=== PATIENT | female | born 1950 | race Caucasian/White ===

== ENCOUNTER 2016-07-01 11:58 | Inpatient (IN) | payer MEDICARE ==
[~2016-07-01] VITALS: Ht 167.6 cm; Wt 67.0 kg
[2016-07-01] MEDS ORDERED: LEVO88TA2 PO (12:25)
[2016-07-01] MEDS ORDERED: ACET-703 PO (12:28)
[2016-07-01] MEDS ORDERED: NAPR220T95 PO (12:28)
[2016-07-13] MEDS ORDERED: CHLORHEXIDINE GLUCONATE 2 % 1 PACK (2 CLOTHS) TOPICAL PRN (05:45)
[2016-07-13] MEDS ORDERED: SODIUM CHLORID 0.9% 500 ML IV PRN (05:45)
[2016-07-13] MEDS ORDERED: CHLORHEXIDINE GLUCONATE 4% SOLN 120 ML BTL TOPICAL SCH (05:45)
[2016-07-13] MEDS ORDERED: ceFAZolin 2 GM PREMIX 50 ML IV SCH (05:45)
[2016-07-13] MEDS ORDERED: METOPROLOL TARTRATE 25 MG TAB PO PRN (05:45)
[2016-07-13] MEDS ORDERED: LACTATED RINGER'S 1000 ML IV PRN (05:45)
[2016-07-13] MEDS ORDERED: SODIUM CHLORIDE FLUSH PRN IV FLUSH (05:45)
[2016-07-13] MEDS ORDERED: POVIDONE IODINE 5% (ANTISEPSIS KIT) 4 APPLICATIONS EACH NARE PRN (05:45)
[2016-07-13] MEDS ORDERED: INSULIN HUMAN REGULAR 1,000 UNITS/10 ML VIAL SQ PRN (05:45)
[2016-07-13] MEDS ORDERED: GENTAMICIN SULFATE 80 MG/2 ML VIAL ONE (05:51)
[2016-07-13 06:00] VITALS: BP 152/72; PULSE 96; RESP 20; TEMP 98.8; O2SAT 100
[2016-07-13] MEDS ORDERED: ACETAMINOPHEN 1000 MG/100 ML VIAL IV ONE (06:44)
[2016-07-13] MEDS ORDERED: FAMOTIDINE 20 MG/2 ML VIAL ONE (06:44)
[2016-07-13] MEDS ORDERED: fentaNYL CITRATE 250 MCG/5 ML AMP ONE (06:45)
[2016-07-13] MEDS ORDERED: DEXAMETHASONE SOD PHOS 4 MG/ML VIAL ONE (06:45)
[2016-07-13] MEDS ORDERED: MIDAZOLAM HCL 2 MG/2 ML VIAL ONE (06:45)
[2016-07-13] MEDS ORDERED: SODIUM CHLORIDE 0.9% FLUSH 5 ML FLUSH IVF PRN (07:00)
[2016-07-13] MEDS ORDERED: EXPAREL PERI-ARTICULAR INJECTION (TOTAL VOL. 60 ML) P-ARTICULR SCH ×2 (07:00)
[2016-07-13] MEDS ORDERED: ZOLPIDEM TARTRATE 5 MG TAB PO PRN (07:00)
[2016-07-13] MEDS ORDERED: Post-op Orders (for Pharmacy) MISC XX ONE (07:00)
[2016-07-13] MEDS ORDERED: BISACODYL 10 MG SUPP RECTAL PRN (07:00)
[2016-07-13] MEDS ORDERED: NALBUPHINE HCL 20 MG/ML AMP IM PRN (07:00)
[2016-07-13] MEDS ORDERED: TRANEXAMIC ACID INJ 625 MG in SODIUM CHLORIDE 0.9% INJ 100 ML IV SCH ×2 (07:00→12:00)
[2016-07-13] MEDS ORDERED: SODIUM CHLORIDE 0.9% IV SCH (07:00)
[2016-07-13] MEDS ORDERED: MAGNESIUM HYDROXIDE SUSP 30 ML CUP PO PRN ×2 (07:00→18:00)
[2016-07-13] MEDS ORDERED: TRANEXAMIC ACID IV SCH (07:00)
[2016-07-13] MEDS: SODIUM CHLORIDE 0.9% FLUSH 5 ML FLUSH IVF SCH ×2 (09:00→20:19)
[2016-07-13] MEDS ORDERED: SODIUM CHLORIDE FLUSH BID IV FLUSH SCH (09:00)
[2016-07-13] MEDS: ASPIRIN EC 81 MG TABEC PO SCH ×2 (09:00→20:18)
[2016-07-13] MEDS ORDERED: HYDROmorphone HCL PF 1 MG/ML VIAL IV PUSH PRN (09:15)
[2016-07-13] MEDS: KETOROLAC TROMETHAMINE 30 MG/ML (IVP) VIAL IVP SCH ×3 (09:30→17:29)
[2016-07-13] MEDS ORDERED: ACETAMINOPHEN 500 MG CPLT PO PRN (09:30)
[2016-07-13] MEDS: LACTATED RINGER'S 1000 ML INJ 1,000 ML IV SCH (09:30)
[2016-07-13] MEDS ORDERED: DO NOT ADM ANY ANTICOAGULANT DRUGS PRN (10:30)
--- NOTE | 2016-07-13 10:44 | RADRPT ---
EXAM DATE/TIME: 07/13/2016 10:15 [place] COMPARISON: No previous studies available for comparison. INDICATIONS : Post op left total hip replacement. MEDICAL HISTORY : Unobtainable. SURGICAL HISTORY : Unobtainable. ENCOUNTER: Initial ACUITY: 1 day PAIN SCORE: Non-responsive. LOCATION: Left hip FINDINGS: Total hip arthroplasty is present. Hardware appears intact. Alignment is anatomic. The adjacent pelvi s is focally unremarkable. CONCLUSION: Satisfactory appearance post a left ALEK Franky Kohler MD on July 13, 2016 at 10:42 Board Certified Radiologist. This report was verified electronically.
[2016-07-13] MEDS: ONDANSETRON HCL 4 MG/2 ML VIAL IVP PRN (11:31)
[2016-07-13 11:34] VITALS: BP 129/74; PULSE 86; RESP 16; TEMP 98.1; O2SAT 100
--- NOTE | 2016-07-13 11:41 | HHI.FF ---
Face to Face Verification Diagnosis: (1) Status post total replacement of left hip Physical Therapy Gait training Hip: Total hip, Protocol: Left, Posterior hip precautions, Progress to weight bearing Canvas Knee Splint: When in bed & 2 pillows btw thighs Left LE Weight Bearing: WB as tolerated Left LE Range of Motion: Active ROM Nursing Nursing: Dressing changes Dressing Changes: Daily dressing change, Coverderm/Primapore Additional Instructions Remove steristrips on postop day 14. I have seen patient Mary Covarrubias on 07/13/16. My clinical findings support the need for the requested home health care services because: Ltd mobility - disease progression Limited ability to care for self High risk of falls I certify that my clinical findings support that this patient is homebound because: Post-op weakness Unsteady gait/balance Unsafe to leave home unassisted Sarahi Peguero MD (Charles) July 13, 2016 11:41
[2016-07-13] MEDS ORDERED: ePHEDrine/NS 25 MG/5 ML SYR IV ONE (12:00)
[2016-07-13] MEDS ORDERED: PROPOFOL 200 MG/20 ML AMP IV ONE (12:00)
[2016-07-13] MEDS ORDERED: ONDANSETRON HCL 4 MG/2 ML VIAL IV PUSH ONE (12:00)
[2016-07-13] MEDS ORDERED: LACTATED RINGER'S 1000 ML INJ 1,000 ML IV ONE (12:00)
[2016-07-13] MEDS ORDERED: NEOSTIGMINE 3 MG/3 ML SYR IV ONE (12:00)
[2016-07-13 17:00] VITALS: BP 123/59; PULSE 93; RESP 16; TEMP 96.7; O2SAT 100
--- NOTE | 2016-07-13 17:34 | PD.CONS ---
HPI Service [facility] Hospitalists Consult Requested By Dr. Peguero Reason for Consult medical management Primary Care Physician Non-Staff Diagnoses: History of Present Illness Patient is a 65-year-old female with past medical history of hypothyroidism, non-Hodgkin's lymphoma in remission is admitted under the orthopedic service for left hip arthroplasty. She is postoperative day 0. 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 She did have her right hip done a few years back. Currently, patient feels nauseous and vomited one time. She denies any chest pain, shortness of breath. She tells me that her pain is currently controlled, however she is very sensitive to narcotics. She is hopeful she can control the pain with just Tylenol. She denies any sore throat, runny nose, ear pain, abdominal pain, burning with urination Hospitalist service was consulted for medical management. Review of Systems Template review of systems are negative except for those mentioned in the history of present illness. Past Family Social History Allergies: Coded Allergies: Morphine (Verified Allergy, Severe, VOMITING, 07/13/16) Tramadol (Verified Allergy, Severe, VOMITING, 07/13/16) Uncoded Allergies: CODEINE (Allergy, Unknown, 11/21/02) Past Medical History Hypothyroidism and non-Hodgkin's lymphoma Past Surgical History Right and left hip arthroplasty, stem cell transplant, oophorectomy on the left due to ovarian cyst, and two port placements Reported Medications Reported Meds & Active Scripts Active Reported Aleve (Naproxen Sodium) 220 Mg Tab 220 Mg PO BID PRN Tylenol Extra Strength (Acetaminophen) 500 Mg Tab 500 Mg PO Q6H PRN Levothyroxine (Levothyroxine Sodium) 88 Mcg Tab 88 Mcg PO DAILY 2 TIMES A WEEK (SAT. AND sUN.) Levothyroxine (Levothyroxine Sodium) 88 Mcg Tab 44 Mcg PO DAILY 5 DAYS A WEEK ( MON. THRU FRI.) Family History Mother had depression and anxiety, father from esophageal cancer Social History Denies any smoking history. Drinks alcohol occasionally. Denies any illegal drug use Physical Exam Vital Signs Vital Signs Date Time Temp Pulse Resp B/P Pulse Ox O2 Delivery O2 Flow Rate FiO2 07/13/16 14:41 18 07/13/16 11:34 98.1 86 16 129/74 100 07/13/16 11:00 79 22 111/52 100 Nasal Cannula 2 07/13/16 10:45 84 22 125/60 100 Nasal Cannula 2 07/13/16 10:30 80 22 133/61 100 Nasal Cannula 2 07/13/16 10:15 91 22 128/58 100 Nasal Cannula 2 07/13/16 10:00 80 22 140/65 100 Nasal Cannula 2 07/13/16 09:45 95 22 121/58 100 Nasal Cannula 2 07/13/16 09:39 96.9 81 22 113/55 100 Nasal Cannula 2 07/13/16 06:00 98.8 96 20 152/72 100 Physical Exam GENERAL: This is a well-nourished, well-developed patient, in no apparent distress. SKIN: No rashes, ecchymoses or lesions. Cool and dry. HEAD: Atraumatic. Normocephalic. No temporal or scalp tenderness. EYES: Pupils equal round and reactive. Extraocular motions intact. No scleral icterus. No injection or drainage. ENT: Nose without drainage. Throat without erythema, tonsillar hypertrophy or exudate. Uvula midline. Airway patent. NECK: Trachea midline. No JVD or lymphadenopathy. Supple, nontender, no meningeal signs. CARDIOVASCULAR: Regular rate and rhythm without murmurs. RESPIRATORY: Clear to auscultation. Breath sounds equal bilaterally. No wheezes , rales, or rhonchi. GASTROINTESTINAL: Abdomen soft, non-tender, nondistended. No hepato-splenomegaly , or palpable masses. No guarding. MUSCULOSKELETAL: Extremities without edema. Dressing over left hip is dry clean and intact. She is able to move her toes, Refill less than 2 seconds, sensation is intact. No calf tenderness. Negative Homans sign bilaterally. NEUROLOGICAL: Awake and alert. Cranial nerves II through XII intact. Motor and sensory grossly within normal limits other extremities. Normal speech. Laboratory Laboratory Tests Test 07/13/16 05:50 Blood Type O POSITIVE Antibody Screen NEGATIVE Imaging Last Impressions Hip X-Ray 07/13/16 0000 Signed Impressions: Service Date/Time: Wednesday, July 13, 2016 10:15 - CONCLUSION: Satisfactory appearance post a left ALEK Franky Kohler MD Assessment and Plan Assessment and Plan Left hip arthroplasty postop day 0. Anticoagulation, rehabilitation, antibiotics and pain management per orthopedic surgery. Colace, MiraLAX and milk of magnesia as needed for bowel regimen. Follow-up hemoglobin in the morning. Hypothyroidism: Home medication has been resumed Non-Hodgkin's lymphoma: In remission DVT prophylaxis: Per orthopedic surgery Thank you for allowing me to take part of Mrs Covarrubias's care, Will continue to follow. Code Status Full code Discussed Condition With Patient and nurse Alyse Leslie MD July 13, 2016 17:34
[2016-07-13] MEDS ORDERED: METOCLOPRAMIDE HCL 10 MG/2 ML VIAL IV PUSH PRN (18:00)
[2016-07-13 20:25] VITALS: BP 128/58; PULSE 97; RESP 17; TEMP 97.3; O2SAT 97
[2016-07-13] MEDS: CELECOXIB 200 MG CAP PO SCH (21:00)
[2016-07-13 21:17] VITALS: O2SAT 100
[2016-07-13] MEDS ORDERED: PILL SPLITTER OTHER PRN (22:00)
[2016-07-14] VITALS (8 sets, daily range): BP systolic 101–135; BP diastolic 52–71; PULSE 88–100; RESP 16–20; TEMP 96.4–99.6; O2SAT 96–100
[2016-07-14] MEDS: KETOROLAC TROMETHAMINE 30 MG/ML (IVP) VIAL IVP SCH ×4 (01:00→17:10)
[2016-07-14] MEDS: LACTATED RINGER'S 1000 ML INJ 1,000 ML IV SCH ×3 (02:22→20:18)
[2016-07-14] MEDS: LEVOTHYROXINE SODIUM 88 MCG TAB PO SCH (05:42)
--- NOTE | 2016-07-14 06:12 | PD.ORT.PN ---
Subjective Post Op Day #: 1 Subjective Remarks She is doing well with almost no pain. She has been [place] [facility] Walked 4 steps due to nausea. Objective Vitals Vital Signs Date Time Temp Pulse Resp B/P Pulse Ox O2 Delivery O2 Flow Rate FiO2 07/14/16 04:05 99.6 100 16 105/52 97 07/14/16 00:30 99.5 97 17 101/54 97 07/13/16 21:17 100 Nasal Cannula 2.00 07/13/16 20:25 97.3 97 17 128/58 97 07/13/16 17:00 96.7 93 16 123/59 100 07/13/16 14:41 18 07/13/16 11:34 98.1 86 16 129/74 100 07/13/16 11:00 79 22 111/52 100 Nasal Cannula 2 07/13/16 10:45 84 22 125/60 100 Nasal Cannula 2 07/13/16 10:30 80 22 133/61 100 Nasal Cannula 2 07/13/16 10:15 91 22 128/58 100 Nasal Cannula 2 07/13/16 10:00 80 22 140/65 100 Nasal Cannula 2 07/13/16 09:45 95 22 121/58 100 Nasal Cannula 2 07/13/16 09:39 96.9 81 22 113/55 100 Nasal Cannula 2 I/O 07/13/16 07/13/16 07/13/16 07/14/16 07/14/16 07/14/16 07:00 15:00 23:00 07:00 15:00 23:00 Intake Total 1940 ml 480 ml Output Total 925 ml Balance 1015 ml 480 ml Intake Oral 240 ml 480 ml IV Total 200 ml Other 1500 ml Output Urine Total 700 ml Estimated Blood Loss 225 ml # Voids 2 2 # Bowel Movements 0 0 Imaging Hip x-ray looks good. Last 72 hours Impressions Hip X-Ray 07/13/16 0000 Signed Impressions: Service Date/Time: Wednesday, July 13, 2016 10:15 - CONCLUSION: Satisfactory appearance post a left ALEK Franky Kohler MD Objective Remarks She is resting comfortably, supine in bed . The neurovascular status is intact. The dressing is dry and intact. Assessment & Plan Ortho Post Op Day #: 1 Problem List: (1) Status post total replacement of left hip Plan: Continue postop care and PT. Assessment and Plan Condition: Good. Orthopaedically stable. DVT prophylaxis: TEDs, sequentials, ASA. Discharge plans: SNF for rehab ( lives alone without assistance) Has appointment. Sarahi Peguero MD (Charles) July 14, 2016 06:12
[2016-07-14 08:23] LABS: HEMATOCRIT 33.1 % (35.0-46.0); REVIEW FLAG FINAL
[2016-07-14] MEDS: ASPIRIN EC 81 MG TABEC PO SCH ×2 (08:28→20:50)
[2016-07-14] MEDS: CELECOXIB 200 MG CAP PO SCH ×2 (08:28→20:50)
[2016-07-14] MEDS: POLYETHYLENE GLYCOL 17 GM PKG PO SCH (08:29)
[2016-07-14] MEDS: SODIUM CHLORIDE 0.9% FLUSH 5 ML FLUSH IVF SCH ×2 (08:29→20:52)
[2016-07-14] MEDS: HYDROmorphone HCL 2 MG TAB PO PRN ×3 (08:37→20:49)
[2016-07-14] MEDS: ONDANSETRON HCL 4 MG/2 ML VIAL IVP PRN (08:46)
[2016-07-14] MEDS ORDERED: LEVOTHYROXINE SODIUM 88 MCG TAB PO SCH (09:00)
--- NOTE | 2016-07-14 10:00 | MP ---
cc: Bandar BACA. DATE OF THE OPERATION 07/13/2016 PREOPERATIVE DIAGNOSIS Osteonecrosis left femoral head. POSTOPERATIVE DIAGNOSIS Osteonecrosis left femoral head. OPERATION PERFORMED Left total hip arthroplasty with Cologne prosthesis. SURGEON Sarahi Baca MD ANESTHESIA General by LMA with supplemental local. INDICATIONS AND FINDINGS This 65-year-old woman has had left hip pain for in excess of a year with progressive increase in pain. Her ambulation tolerance is 1/4-mile because of the pain. This has not responded well to conservative measures including antiinflammatory agents, activity modification, exercise and ambulatory aids. This limits her ability to function appropriately. She was found to have osteonecrosis of the femoral head radiographically with MRI and x-ray. Physical findings showed limited motion in the hip with tenderness in the hip. X-rays showed an asymmetric femoral head with a slight step-off which is seen on x-ray and MRI. Operative findings showed some a soft superior aspect of the greater of the femoral head with irregularity in the articular cartilage and irregularity in the acetabulum with loss of articular cartilage in the depths of the acetabulum. This would be consistent with Ficat III to IV findings. PROSTHESIS USED Cologne prosthesis with the acetabular component being a 48-mm Tritanium cluster cup with a 32-mm inner diameter 0-degree liner. The femoral component was a size 3 x 132 degree Accolade II femoral component with a femoral head of X3 polyethylene with 32-mm outer diameter, +0 neck length. PROCEDURE The patient was brought to the operating room and a general endotracheal anesthetic was administered. She was placed in a lateral position on a Biomet lateral positioner with the left hip up. She was then prepped with alcohol, Hibiclens and Chloraprep and draped in the usual manner with the hip draped free. An axillary roll was under the right shoulder. An appropriate time-out procedure was carried out. The incision site was anesthetized with Exparel prior to making the incision. The incision was then made over the greater trochanter tip measuring approximately 12-cm. The incision was deepened through subcutaneous tissues to the fascia irene and gluteus fascia which were incised in line with the fibers in the skin incision. The Charnley retractor was placed with its wound towels. The sciatic nerve was identified and protected throughout the procedure. The hip was internally rotated. The external rotators were released off the posterior aspect of the greater trochanter and reflected off the capsule which was likewise released by doing a capsulotomy with a posteriorly based flap. Hemostasis was carefully achieved. The hip was dislocated. The femoral neck was transected with the oscillating saw at the appropriate level. The femoral head was removed. Retractors were placed about the proximal femur. Femoral preparation was initiated with a box osteotome, canal-finding awl and large curette. The broaching was then initiated with a size 0 and went in one size increments, going up to size 3. With the size [address], calcar planing was carried out. The hip was then repositioned exposing the acetabulum. Dissection of the soft tissues around the hip was carried out with excision of the labrum and the ligamentum teres. Hemostasis was carefully achieved again. Reaming was initiated with the 44-mm reamer and went in 1-mm increments up to size 48. At this level a trial prosthesis was impacted into place and seated appropriately. This was very stable and appropriate in position. The trial prosthesis was removed. A 48-mm outer diameter cluster hole titanium shell was impacted into place and seated appropriately. This was done according to anatomic and instrumentation lines. The drill hole was then made in the superior fenestration. This was then sounded and a 25-mm screw was inserted into this fenestration. When this was inserted, the 0-degrees liner was inserted and impacted into place. A rongeur was used to remove osteophytes about the acetabulum. Local anesthesia was administered throughout the acetabulum and then up into the posterior aspect and anterior aspect of the femur at the cut levels. The trial reduction was then carried out with the a +0 neck length and 32-mm trial head. The stability was excellent. The motion was excellent. The leg lengths appeared to be appropriate. There is no pistoning. After and after removal of the neck and head trial, the broach was removed. The actual prosthesis which was a 132-degree, size 3 Accolade II stem was impacted into place and seated appropriately. When this was fully seated, a trial reduction was again carried out with the trial prosthesis. The prosthesis chosen was a Biolox Delta 32-mm head with a +0-mm neck length. The trunnion was cleaned and dried. The femoral head was placed onto the clean and dry trunnion impacted into place. The hip was reduced. The stability was excellent. The range of motion was excellent. There was no pistoning. The leg lengths appeared appropriate. The remainder of the Exparel was then injected throughout the hip at the appropriate levels. The external rotators and capsule were repaired to the posterior aspect of the greater trochanter with #1 transosseous Vicryl sutures with a Krackow technique. The fascia irene and gluteus fascia were repaired after verifying the integrity of the sciatic nerve. This was done with a #1 Vicryl in interrupted [id number] sutures. The subcutaneous tissues were closed with 2-0 Vicryl interrupted simple sutures with buried knots. The skin was closed with a continuous subcuticular closure of 4-0 Monocryl. The wound was dressed with Steri-Strips followed by dry dressing and Medipore compression hip dressing. A canvas knee splint was applied. The patient was transferred to the recovery room in satisfactory condition having tolerated the procedure well. COUNTS Counts were correct. SPECIMENS None. ESTIMATED BLOOD LOSS 300 mL. MD MASON Flores/CHEVY /9:36 AM /9:40 AM
--- NOTE | 2016-07-14 11:47 | HHI.PR ---
Subjective Remarks Patient reports that her pain is well controlled. No abdominal pain, nausea, vomiting. Has not had a bowel movement yet. Objective Vitals Vital Signs Date Time Temp Pulse Resp B/P Pulse Ox O2 Delivery O2 Flow Rate FiO2 07/14/16 09:37 18 07/14/16 08:00 96.4 94 19 135/71 100 07/14/16 04:05 99.6 100 16 105/52 97 07/14/16 00:30 99.5 97 17 101/54 97 07/13/16 21:17 100 Nasal Cannula 2.00 07/13/16 20:25 97.3 97 17 128/58 97 07/13/16 17:00 96.7 93 16 123/59 100 07/13/16 14:41 18 I/O 07/13/16 07/13/16 07/13/16 07/14/16 07/14/16 07/14/16 07:00 15:00 23:00 07:00 15:00 23:00 Intake Total 1940 ml 480 ml 240 ml Output Total 925 ml Balance 1015 ml 480 ml 240 ml Intake Oral 240 ml 480 ml 240 ml IV Total 200 ml Other 1500 ml Output Urine Total 700 ml Estimated Blood Loss 225 ml # Voids 2 2 1 # Bowel Movements 0 0 0 Result Diagram: 07/14/16 0723 Imaging Last Impressions Hip X-Ray 07/13/16 0000 Signed Impressions: Service Date/Time: Wednesday, July 13, 2016 10:15 - CONCLUSION: Satisfactory appearance post a left ALEK Franky Kohler MD Objective Remarks General: No acute distress. Heart: Regular rate and rhythm. No murmur. Lungs: Clear to auscultation bilaterally. No wheezes, rales, or rhonchi. Breathing is nonlabored. Abdomen: Soft, nontender, nondistended. Extremities: No lower extremity edema. SCDs. Psych: Alert and oriented. Urinary Catheter: No Vascular Central Line Catheter: No A/P Problem List: (1) Osteonecrosis of left hip ICD Code: M87.9 Status: Acute (2) Hypothyroidism ICD Code: E03.9 Status: Chronic Assessment and Plan 1. Osteonecrosis, left hip: Status post left hip arthroplasty, POD #1. Management per orthopedic surgery. Continue pain control, PT, bowel regimen. 2. Hypothyroidism: Continue Synthroid. 3. History of non-Hodgkin's lymphoma: In remission. 4. DVT prophylaxis: Aspirin, SCDs, BRITTA newsome. Aydin Dunn MD July 14, 2016 11:47
[2016-07-14] MEDS: DOCUSATE SODIUM 100 MG CAP PO SCH (20:49)
[2016-07-15] VITALS (7 sets, daily range): BP systolic 102–115; BP diastolic 42–55; PULSE 78–95; RESP 16–17; TEMP 98.4–99.7; O2SAT 96–99
[2016-07-15] MEDS: KETOROLAC TROMETHAMINE 30 MG/ML (IVP) VIAL IVP SCH (01:00)
[2016-07-15] MEDS: LEVOTHYROXINE SODIUM 88 MCG TAB PO SCH (05:37)
[2016-07-15 05:53] LABS: REVIEW FLAG FINAL
--- NOTE | 2016-07-15 07:26 | PD.ORT.PN ---
Subjective Post Op Day #: 2 Subjective Remarks She is doing well with almost no pain. She has been OOB to the bathroom. This hospital stay has been better than her last one. Distance Walked 200 feet. Objective Vitals Vital Signs Date Time Temp Pulse Resp B/P Pulse Ox O2 Delivery O2 Flow Rate FiO2 07/15/16 04:05 99.0 78 16 111/55 96 07/15/16 00:35 98.9 95 16 102/53 98 07/14/16 20:30 99.0 91 16 112/53 96 07/14/16 18:01 99 21 07/14/16 16:00 97.0 88 20 125/70 100 07/14/16 14:13 18 07/14/16 12:00 96.4 88 20 103/53 98 07/14/16 08:30 100 Nasal Cannula 2.00 07/14/16 08:00 96.4 94 19 135/71 100 I/O 07/14/16 07/14/16 07/14/16 07/15/16 07/15/16 07/15/16 07:00 15:00 23:00 07:00 15:00 23:00 Intake Total 240 ml 600 ml 480 ml 240 ml Balance 240 ml 600 ml 480 ml 240 ml Intake Oral 240 ml 600 ml 480 ml 240 ml # Voids 1 3 1 1 # Bowel Movements 0 0 0 Result Diagram: 07/15/16 0515 Imaging Hip x-ray looks good. Last 72 hours Impressions Hip X-Ray 07/13/16 0000 Signed Impressions: Service Date/Time: Wednesday, July 13, 2016 10:15 - CONCLUSION: Satisfactory appearance post a left ALEK Franky Kohler MD Objective Remarks She is resting comfortably, supine in bed . The neurovascular status is intact. The dressing is dry and intact. Assessment & Plan Problem List: (1) Status post total replacement of left hip Plan: Continue postop care and PT. Assessment and Plan Condition: Good. Orthopaedically stable. DVT prophylaxis: TEDs, sequentials, ASA. Discharge plans: SNF for rehab ( lives alone without assistance) Has appointment. Sarahi Peguero MD (Charles) July 15, 2016 07:26
[2016-07-15] MEDS: CELECOXIB 200 MG CAP PO SCH ×2 (08:01→20:14)
[2016-07-15] MEDS: ASPIRIN EC 81 MG TABEC PO SCH ×2 (08:01→20:14)
[2016-07-15] MEDS: DOCUSATE SODIUM 100 MG CAP PO SCH ×2 (08:01→20:14)
[2016-07-15] MEDS: POLYETHYLENE GLYCOL 17 GM PKG PO SCH (08:01)
[2016-07-15] MEDS ORDERED: DILA2TAB2 PO (08:33)
[2016-07-15] MEDS ORDERED: ASPI81TA11 PO (08:33)
[2016-07-15] MEDS: LACTATED RINGER'S 1000 ML INJ 1,000 ML IV SCH (08:48)
[2016-07-15] MEDS: SODIUM CHLORIDE 0.9% FLUSH 5 ML FLUSH IVF SCH ×2 (09:00→21:00)
[2016-07-15] MEDS: HYDROmorphone HCL 2 MG TAB PO PRN ×2 (10:53→20:14)
[2016-07-15] MEDS: ONDANSETRON HCL 4 MG/2 ML VIAL IVP PRN ×2 (10:57→20:14)
--- NOTE | 2016-07-15 14:23 | HHI.PR ---
Subjective Remarks Follow-up constipation. Patient states that she had a very small bowel movement today. No abdominal pain, nausea, vomiting. Hip pain is well controlled. Objective Vitals Vital Signs Date Time Temp Pulse Resp B/P Pulse Ox O2 Delivery O2 Flow Rate FiO2 07/15/16 12:04 98.7 79 16 104/50 99 07/15/16 11:04 98 21 07/15/16 08:34 98.5 78 16 105/42 97 07/15/16 04:05 99.0 78 16 111/55 96 07/15/16 00:35 98.9 95 16 102/53 98 07/14/16 20:30 99.0 91 16 112/53 96 07/14/16 18:01 99 21 07/14/16 16:00 97.0 88 20 125/70 100 I/O 07/14/16 07/14/16 07/14/16 07/15/16 07/15/16 07/15/16 07:00 15:00 23:00 07:00 15:00 23:00 Intake Total 240 ml 600 ml 480 ml 240 ml Balance 240 ml 600 ml 480 ml 240 ml Intake Oral 240 ml 600 ml 480 ml 240 ml # Voids 1 3 1 1 # Bowel Movements 0 0 0 Result Diagram: 07/15/16 0515 Imaging Last Impressions Hip X-Ray 07/13/16 0000 Signed Impressions: Service Date/Time: Wednesday, July 13, 2016 10:15 - CONCLUSION: Satisfactory appearance post a left ALEK Franky Kohler MD Objective Remarks General: No acute distress. Heart: Regular rate and rhythm. No murmur. Lungs: Clear to auscultation bilaterally. No wheezes, rales, or rhonchi. Breathing is nonlabored. Abdomen: Soft, nontender, nondistended. Extremities: No lower extremity edema. SCDs. Psych: Alert and oriented. Procedures 07/13/16 left total hip arthroplasty Urinary Catheter: No Vascular Central Line Catheter: No A/P Problem List: (1) Osteonecrosis of left hip ICD Code: M87.9 Status: Acute (2) Hypothyroidism ICD Code: E03.9 Status: Chronic Assessment and Plan 1. Osteonecrosis, left hip: Status post left hip arthroplasty, POD #2. Management per orthopedic surgery. Continue pain control, PT, bowel regimen. Patient had a small bowel movement this morning. 2. Hypothyroidism: Continue Synthroid. 3. History of non-Hodgkin's lymphoma: In remission. 4. DVT prophylaxis: Aspirin, SCDs, BRITTA frankline. Discharge Planning Per orthopedic surgery, plan is discharge to SNF tomorrow. Aydin Dunn MD July 15, 2016 14:23
[2016-07-16] VITALS: BP 111/68; PULSE 81; RESP 20; TEMP 97.1; O2SAT 97
[2016-07-16 04:00] VITALS: BP 131/70; PULSE 82; RESP 20; TEMP 97; O2SAT 99
[2016-07-16] MEDS: LEVOTHYROXINE SODIUM 88 MCG TAB PO SCH (06:14)
--- NOTE | 2016-07-16 06:46 | PD.ORT.PN ---
Subjective Post Op Day #: 3 Subjective Remarks She is doing well with almost no pain. She has been OOB. Distance Walked 275 feet with PT. Objective Vitals Vital Signs Date Time Temp Pulse Resp B/P Pulse Ox O2 Delivery O2 Flow Rate FiO2 07/16/16 04:00 97.0 82 20 131/70 99 07/16/16 00:00 97.1 81 20 111/68 97 07/15/16 20:45 98.4 88 17 115/49 98 07/15/16 17:00 99.7 83 16 107/46 97 07/15/16 12:04 98.7 79 16 104/50 99 07/15/16 11:04 98 21 07/15/16 08:34 98.5 78 16 105/42 97 I/O 07/15/16 07/15/16 07/15/16 07/16/16 07/16/16 07/16/16 07:00 15:00 23:00 07:00 15:00 23:00 Intake Total 240 ml 1360 ml Balance 240 ml 1360 ml Intake Oral 240 ml 1360 ml # Voids 1 7 2 # Bowel Movements 0 2 0 Result Diagram: 07/15/16 0515 Imaging Hip x-ray looks good. Last 72 hours Impressions Hip X-Ray 07/13/16 0000 Signed Impressions: Service Date/Time: Wednesday, July 13, 2016 10:15 - CONCLUSION: Satisfactory appearance post a left ALEK Franky Kohler MD Objective Remarks She is resting comfortably, supine in bed . The neurovascular status is intact. The dressing is dry and intact. Assessment & Plan Problem List: (1) Status post total replacement of left hip Plan: Continue postop care and PT. Assessment and Plan Condition: Good. Orthopaedically stable. DVT prophylaxis: TEDs, sequentials, ASA. Discharge plans: SNF for rehab today (lives alone without assistance) Has appointment. Rx: Dilaudid 2mg to be taken 1 mg. Sarahi Peguero MD (Charles) July 16, 2016 06:46 Sarahi Peguero MD (Charles) July 16, 2016 06:46
[2016-07-16 07:34] VITALS: BP 130/69; PULSE 82; RESP 17; TEMP 98.4; O2SAT 98
[2016-07-16] MEDS: ONDANSETRON HCL 4 MG/2 ML VIAL IVP PRN (08:59)
[2016-07-16] MEDS: CELECOXIB 200 MG CAP PO SCH (08:59)
[2016-07-16] MEDS: HYDROmorphone HCL 2 MG TAB PO PRN ×2 (08:59→14:46)
[2016-07-16] MEDS: ASPIRIN EC 81 MG TABEC PO SCH (09:00)
[2016-07-16] MEDS: SODIUM CHLORIDE 0.9% FLUSH 5 ML FLUSH IVF SCH (09:00)
[2016-07-16] MEDS: POLYETHYLENE GLYCOL 17 GM PKG PO SCH (09:00)
[2016-07-16] MEDS: DOCUSATE SODIUM 100 MG CAP PO SCH (09:00)
[2016-07-16] MEDS: LACTATED RINGER'S 1000 ML INJ 1,000 ML IV SCH (09:48)
[2016-07-16 11:42] VITALS: BP 123/54; PULSE 84; RESP 17; TEMP 98.9; O2SAT 99
[2016-07-16] MEDS ORDERED: ZOFR4TAB3 SL (11:43)
--- NOTE | 2016-07-16 11:58 | HHI.PR ---
Subjective Remarks Follow-up constipation, nausea. Patient has had 2 bowel movements. She has nausea whenever she takes the pain medication. Pain is well controlled at this time. Denies cough, dyspnea, chest pain. Objective Vitals Vital Signs Date Time Temp Pulse Resp B/P Pulse Ox O2 Delivery O2 Flow Rate FiO2 07/16/16 11:42 98.9 84 17 123/54 99 07/16/16 07:34 98.4 82 17 130/69 98 07/16/16 04:00 97.0 82 20 131/70 99 07/16/16 00:00 97.1 81 20 111/68 97 07/15/16 20:45 98.4 88 17 115/49 98 07/15/16 17:00 99.7 83 16 107/46 97 07/15/16 12:04 98.7 79 16 104/50 99 I/O 07/15/16 07/15/16 07/15/16 07/16/16 07/16/16 07/16/16 07:00 15:00 23:00 07:00 15:00 23:00 Intake Total 240 ml 1360 ml Balance 240 ml 1360 ml Intake Oral 240 ml 1360 ml # Voids 1 7 2 # Bowel Movements 0 2 0 Result Diagram: 07/15/16 0515 Imaging Last Impressions Hip X-Ray 07/13/16 0000 Signed Impressions: Service Date/Time: Wednesday, July 13, 2016 10:15 - CONCLUSION: Satisfactory appearance post a left ALEK Franky Kohler MD Objective Remarks General: No acute distress. Heart: Regular rate and rhythm. No murmur. Lungs: Clear to auscultation bilaterally. No wheezes, rales, or rhonchi. Breathing is nonlabored. Abdomen: Soft, nontender, nondistended. Extremities: No lower extremity edema. SCDs. Psych: Alert and oriented. Procedures 07/13/16 left total hip arthroplasty Urinary Catheter: No Vascular Central Line Catheter: No A/P Problem List: (1) Osteonecrosis of left hip ICD Code: M87.9 Status: Acute (2) Hypothyroidism ICD Code: E03.9 Status: Chronic (3) Nausea ICD Code: R11.0 Status: Acute (4) Constipation ICD Code: K59.00 Status: Acute Assessment and Plan 1. Osteonecrosis, left hip: Status post left hip arthroplasty, POD #3. Management per orthopedic surgery. Continue pain control, PT, bowel regimen. Patient had a small bowel movement this morning. 2. Hypothyroidism: Continue Synthroid. 3. History of non-Hodgkin's lymphoma: In remission. 4. DVT prophylaxis: Aspirin, SCDs, BRITTA hose. 5. Constipation: Resolved. 6. Nausea: Zofran as needed. Discharge Planning Per orthopedic surgery. Discharge to SNF today. Aydin Dunn MD July 16, 2016 11:58
[2016-07-18] MEDS ORDERED: LEVOTHYROXINE SODIUM 88 MCG TAB PO SCH (06:00)
--- NOTE | 2016-08-23 09:00 | MD ---
cc: Bandar BACA. ADMISSION DATE: 07/13/2016 DISCHARGE DATE: 07/16/2016 ADMISSION DIAGNOSIS Osteonecrosis left femoral head. FINAL DIAGNOSIS Osteonecrosis left femoral head. OPERATION Left total hip arthroplasty with Caleb prosthesis on 07/13/2016 PRESENT ILLNESS This 65-year-old woman has had over a year pain in her left hip with progressive worsening. Her ambulation tolerance is one-quarter of a mile because of the pain. Conservative measures including anti-inflammatory agents, activity modification exercises, activity, ambulatory aids have not helped her. She has had progressive worsening. Physical findings showed pain on motion in the hip with tenderness in the hip on motion. Imaging studies including x-rays and MRI showed osteonecrosis of the femoral head with beginning collapse of the femoral head with asymmetry. HOSPITAL COURSE The patient was admitted on 07/13/2016 as noted above. She had the above-noted total hip arthroplasty that date. She tolerated the procedure well. DVT prophylaxis was initiated with aspirin, sequentials and BRITTA stockings. She was started on physical therapy the day of surgery and walked only four steps because of nausea. Maximum temperature was 99.6. X-rays showed excellent position and alignment of the prosthesis. By the second postoperative day she was able to walk to the bathroom. She walked 200 feet. She remained afebrile. Hemoglobin was 10.3 with hematocrit 30.0. She continued to progress the same way as noted above. By the third postoperative day she was walking 275 feet with therapy. Maximum temperature was 99.7. She continued to improve. Because she had no assistance and lived alone, she decided to go to a halfway facility. She was discharged on that date to be followed in the office. Prescription was given for Dilaudid to be taken 1 milligram at a time. MD MASON Flores/ABBY /6:16 PM /3:56 AM
== END 2016-07-16 16:49 | DRG 470 ==
LOC: HSDI 07-13 05:09 → N06B 07-13 11:25
PROVIDERS: ADMIT Orthopaedic Surgery; ATTEND Orthopaedic Surgery
PROC: 0SRB0JZ Replacement of Left Hip Joint with Synthetic Substitute, Open Approach (ICD-10-PCS; principal; 2016-07-13 06:47)
DX: M87.152 Osteonecrosis due to drugs, left femur (principal); Z94.84 Stem cells transplant status; E03.9 Hypothyroidism, unspecified; T38.0X5A Adverse effect of glucocorticoids and synthetic analogues, initial encounter; M87.9 Osteonecrosis, unspecified; K59.00 Constipation, unspecified; Z85.72 Personal history of non-Hodgkin lymphomas
CPT/HCPCS: 73502; 85014; 85018; 86850; 86900; 86901; 94150; C1776; C9290; J0131; J0690; J1100; J1580; J1885; J2250; J2405; J2710; J3010; J7120; L1830

== ENCOUNTER → 2016-07-01 | Outpatient (CLI) | payer MEDICARE ==
[~2016-07-01] MED LIST: ACET-703 PO; ASPI81TA11 PO; CALCTAB70 PO; DENO60P SC; DILA2TAB2 PO; DOCU1CAP39 PO; LEVO88TA2 PO; NAPR220T95 PO; OXYC5 PO; PERC5TAB12 PO; PROM1SUP12 PR; TAB-TAB PO; XARE10TA PO; ZOFR4TAB3 PO; ZOFR4TAB3 SL
--- NOTE | 2016-07-02 12:23 | EKG ---
Date Performed: 07/01/2016 Time Performed: 12:14:13 PTAGE: 65 years EKG: Sinus rhythm NORMAL ECG Compared to prior tracing no significant change PREVIOUS TRACING 06/27/2013 14.20 DOCTOR: Ramana Eden Interpretating Date/Time 07/02/2016 12:23:32
== END ==
LOC: CPRE 11:50
PROVIDERS: ATTEND Orthopaedic Surgery
DX: Z01.810 Encounter for preprocedural cardiovascular examination (principal); M87.052 Idiopathic aseptic necrosis of left femur; M79.609 Pain in unspecified limb
CPT/HCPCS: 93005